=== PATIENT | male | born 1985 | race American Indian/Alaskan Native ===

== ENCOUNTER 2017-03-05 07:58 | Emergency (ER) | payer OTHER ==
[2017-03-05 08:07] VITALS: BP 117/74
[2017-03-05] MEDS ORDERED: NORCO 5/325 PO ONE (08:44)
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
== END 2017-03-05 09:18 | disposition home or self-care (01) ==
LOC: ED 07:58
DX: M79.1 Myalgia (principal); M54.5 Low back pain; M54.2 Cervicalgia; F17.200 Nicotine dependence, unspecified, uncomplicated; F12.10 Cannabis abuse, uncomplicated; V43.52XA Car driver injured in collision with other type car in traffic accident, initial encounter; Y93.89 Activity, other specified; Y99.8 Other external cause status; Y92.89 Other specified places as the place of occurrence of the external cause
CPT/HCPCS: 99282